=== PATIENT | female | born 1980 | race Caucasian/White ===

== ENCOUNTER 2017-09-02 01:27 | Emergency (ER) | payer MEDICAID ==
[2017-09-02] MEDS ORDERED: Gabapentin 400 MG Cap PO STA (02:30)
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
== END 2017-09-02 03:09 | disposition home or self-care (01) ==
LOC: JP.ED 01:27
DX: S04 Injury of cranial nerve (principal); F17.210 Nicotine dependence, cigarettes, uncomplicated; Z88.5 Allergy status to narcotic agent; Z88.8 Allergy status to other drugs, medicaments and biological substances; Z88.7 Allergy status to serum and vaccine; Y08.09XD Assault by strike by other specified type of sport equipment, subsequent encounter
CPT/HCPCS: 99284; A9270